=== PATIENT | male | born 1960 | race Caucasian/White ===

== ENCOUNTER → 2017-09-17 | Outpatient (CLI) | payer OTHER ==
[~2017-09-17] MED LIST: ENBREL50 MG/1 ML SQ; ETODOLAC500 MG PO; FOLIC ACID1 MG PO; IBUPROFEN 800800 M1 PO; METHOTREXATE PO; OXYCODONE HCL15 MG PO; PREDNISONE 5 MG5 M1 PO; VICODIN ES 7.51 EACH PO
== END ==
LOC: M.CT 12:40
DX: Z13.6 Encounter for screening for cardiovascular disorders (principal)

== ENCOUNTER → 2017-09-17 | Outpatient (CLI) | payer OTHER ==
--- NOTE | 2017-09-17 14:09 | 2DMMODE ---
[place] [address] 2 D/M-MODE ECHOCARDIOGRAM Name: ELIJAH SHIPLEY JR Room: [facility]#: [id number] Admission: 09/17/17 Attend Phys: Mason Faustin Discharge: Date of : 60 Date of Service: 09/17/17 1409 Report #: [id number] THIS REPORT FOR: //name// APPROVED REPORT Study performed: 09/17/2017 12:49:22 EXAM: Comprehensive 2D, Doppler, and color-flow Echocardiogram Patient Location: Out-Patient BSA: 2.15 HR: 67 bpm BP: 138/88 mmHg Other Information Study Quality: Good Indications Dyspnea Edema 2D Dimensions LVEF(%): 66.17 (>50%) IVSd: 9.39 (7-11mm) LVOT Diam: 24.46 (18-24mm) LVDd: 40.88 mm PWd: 9.89 (7-11mm) Ascending Ao: 31.16 (22-36mm) LVDs: 26.14 (25-40mm) Aortic Root: 34.67 mm Thornton's LVEF: 66.17 % Volumes Left Atrial Volume (Systole) LA ESV Index: 25.10 mL/m2 Aortic Valve AoV Peak Josse.: 1.40 m/s AO Peak Gr.: 7.86 mmHg LVOT Max P.80 mmHg AO Mean Gr.: 4.54 mmHg LVOT Mean P.19 mmHg LVOT Max V: 1.10 m/s AO V2 VTI: 24.15 cm LVOT Mean V: 0.67 m/s ALISSA (VTI): 4.28 cm2 LVOT V1 VTI: 21.99 cm Mitral Valve E/A Ratio: 0.92 MV Decel. Time: 227.91 [place] [address] 2 D/M-MODE ECHOCARDIOGRAM Name: ELIJAH SHIPLEY JR Room: [facility]#: [id number] Admission: 09/17/17 Attend Phys: Mason Faustin Discharge: Date of : 60 Date of Service: 09/17/17 1409 Report #: [id number] MV E Max Josse.: 0.77 m/s MV PHT: 66.09 ms MVA (PHT): 3.33 cm2 TDI E/Lateral E': 7.70 E/Medial E': 9.63 Medial E' Josse.: 0.08 m/s Lateral E' Josse.: 0.10 m/s Pulmonary Valve PV Peak Josse.: 0.96 m/s PV Peak Gr.: 3.71 mmHg Tricuspid Valve RAP Estimate: 5.00 mmHg TR Peak Gr.: 9.34 mmHg RVSP: 14.34 mmHg PA Pressure: 14.34 mmHg Left Ventricle The left ventricle is normal size. There is normal LV segmental wall motion. Mild concentric left ventricular hypertrophy. Left ventricular systolic function is normal. The left ventricular ejection fraction is within the normal range. LVEF is 60%. Grade I - abnormal relaxation pattern. Right Ventricle The right ventricle is normal size. The right ventricular systolic function is normal. Atria The left atrium size is normal. The right atrium size is normal. Aortic Valve Mild aortic valve sclerosis. No aortic regurgitation is present. There is no aortic valvular stenosis. Mitral Valve The mitral valve is normal in structure. Trace mitral regurgitation. No evidence of mitral valve stenosis. Tricuspid Valve The tricuspid valve is normal in structure. Trace tricuspid regurgitation. Pulmonic Valve The pulmonary valve is normal in structure. [place] [address] 2 D/M-MODE ECHOCARDIOGRAM Name: ELIJAH SHIPLEY JR Room: [facility]#: [id number] Admission: 09/17/17 Attend Phys: Mason Faustin Discharge: Date of : 60 Date of Service: 09/17/17 1409 Report #: [id number] valvular regurgitation. Great Vessels The aortic root is normal in size. IVC is not well visualized. Pericardium There is no pericardial effusion. <Conclusion> The left ventricle is normal size. Mild concentric left ventricular hypertrophy. Left ventricular systolic function is normal. The left ventricular ejection fraction is within the normal range. LVEF is 60%. Grade I - abnormal relaxation pattern. The right ventricle is normal size. The left atrium size is normal. Mild aortic valve sclerosis. No aortic regurgitation is present. There is no aortic valvular stenosis. The mitral valve is normal in structure. Trace mitral regurgitation. The tricuspid valve is normal in structure. There is no pericardial effusion. There is normal LV segmental wall motion. <ELECTRONICALLY SIGNED> By: Glen Buenrostro MD, FACC 09/17/17 1409 1409 1409 Glen Buenrostro MD, FACC /INF
== END ==
LOC: M.CRD 12:33
DX: I51.7 Cardiomegaly (principal); I35.8 Other nonrheumatic aortic valve disorders